=== PATIENT | male | born 1995 | race American Indian/Alaskan Native ===

== ENCOUNTER 2021-10-20 05:49 | Emergency (ER) | payer OTHER ==
[2021-10-20 05:57] VITALS: BP 136/82
== END 2021-10-20 08:38 | disposition left against medical advice (07) ==
LOC: ED 05:49
DX: R10.9 Unspecified abdominal pain (principal); R11.10 Vomiting, unspecified; Z53.21 Procedure and treatment not carried out due to patient leaving prior to being seen by health care provider